=== PATIENT | female | born 1990 | race Caucasian/White ===

== ENCOUNTER → 2019-05-03 20:00 | Observation (INO) ==
[2019-05-03 17:23] LABS: Amphetamine Screen,Urine Negative ng/mL (Cutoff=1000); Barbiturate Screen,Urine Negative ng/mL (Cutoff=200); Benzodiazepines Screen,Urine Negative ng/mL (Cutoff=200); Cannabinoid Screen,Urine Negative ng/mL (Cutoff = 50); Cocaine Screen,Urine Negative ng/mL (Cutoff= 300); Opiate Screen,Urine Negative ng/mL (Cutoff=300); Phencyclidine Screen,Urine Negative ng/mL (Cutoff=25)
--- NOTE | 2019-05-03 19:40 | OB/GYN Progress Note ---
Date of Encounter: 05/03/19 Time of Encounter: 19:35 - Assessment and Plan (1) 34 weeks gestation of Current Visit: Yes Status: Acute Likely dehydration due to admission of large amount of soda consumed IV fluid bolus PO Benadryl, metoclopramide, and tylenol x 1 Encouraged oral hydration Reactive NST Urine dip negative for protein; blood pressures low normal Discharge home with labor precautions Follow up in office with routine care and PRN POC per consult with Dr Castillo. (2) Headache Current Visit: Yes Status: Acute Qualifiers: Headache type: unspecified Headache chronicity pattern: acute headache Intractability: not intractable Qualified Code(s): R51 - Headache (3) NST (non-stress test) reactive Current Visit: Yes Status: Acute Subjective - Subjective Principal diagnosis: Headache x 4 days Interval history: Ms Carmona is a 28 year old at 33 weeks and 2 days that presents to triage with c/o headache x 4 days with no relief with tylenol. She rates it as a 9/10; she denies light and sound sensitivity. She states occasional blurry vision which clears quickly. She denies epigastric pain, contractions, cramping, vaginal discharge, and vaginal bleeding. She states positive movement. She states she drinks roughly 1.5 liters of water a day and "a lot of coke". She is seen by Dr May for her care and has had steroids earlier this month for contractions. Antepartum ROS: movement normal, no loss of fluid, no vaginal bleeding, no contractions Objective - Vital Signs Vital Signs: Intake and Output 05/03/19 05/03/19 05/03/19 07:59 15:59 23:59 Other: Weight 60.3 kg Patient Weight 05/03/19 23:59 Weight 60.3 kg - Exam FHR: auscultation normal, category 1 FHR comments: Baseline 135 moderate variability with >15 x 15 accels no decels no contractions Auscultation: bilateral: normal Abdomen: Present: normal appearance, soft, gravid Uterus: Present: normal. Absent: firm
[~2019-05-03 20:00] MED LIST: Acetaminophen 325 MG TABLET PO ONE; Ringers Solution, Lactated 1,000 ML IVC ONE; Ringers Solution, Lactated 1,000 ML ONE
== END | disposition home or self-care (01) ==
LOC: 1NENULAB
PROVIDERS: ADMIT Advanced Practice Midwife; ATTEND Advanced Practice Midwife

== ENCOUNTER → 2019-05-22 20:29 | Observation (INO) ==
[2019-05-22 19:52] LABS: Bilirubin,Urine Negative (Negative); Blood,Urine Negative (Negative); Clarity,Urine Clear (Clear); Color,Urine Yellow (Yellow); Glucose,Urine (UA) Normal (Normal); Ketones,Urine Negative (Negative); Leukocyte Esterase,Urine Small (Negative); Nitrite,Urine Negative (Negative); Protein,Urine Negative (Neg-Trace); Specific Gravity,Urine 1.009 (1.010-1.025); Urobilinogen,Urine Normal (Normal)
[2019-05-22 19:53] LABS: Bacteria,Urine Few per hpf (None-Few); Hyaline Casts,Urine None Seen per lpf (None-Few); RBC,Urine 0-3 per hpf (0-3); Squamous Epithelial Cell,Urine Many per lpf (None-Few)
[2019-05-22 20:00] LABS: Amphetamine Screen,Urine Negative ng/mL (Cutoff=1000); Barbiturate Screen,Urine Negative ng/mL (Cutoff=200); Benzodiazepines Screen,Urine Negative ng/mL (Cutoff=200); Cannabinoid Screen,Urine Negative ng/mL (Cutoff = 50); Cocaine Screen,Urine Negative ng/mL (Cutoff= 300); Opiate Screen,Urine Negative ng/mL (Cutoff=300); Phencyclidine Screen,Urine Negative ng/mL (Cutoff=25)
[2019-05-22 21:13] LABS: Candida DNA Not Detected (Not Detect); Gardnerella DNA DETECTED (Not Detect); Trichomonas DNA Not Detected (Not Detect)
== END | disposition home or self-care (01) ==
LOC: 1NENULAB
PROVIDERS: ADMIT Registered Nurse; ATTEND Registered Nurse

== ENCOUNTER → 2019-05-28 18:35 | Observation (INO) ==
[2019-05-28 17:25] LABS: Amphetamine Screen,Urine Negative ng/mL (Cutoff=1000); Barbiturate Screen,Urine Negative ng/mL (Cutoff=200); Benzodiazepines Screen,Urine Negative ng/mL (Cutoff=200); Bilirubin,Urine Negative (Negative); Blood,Urine Negative (Negative); Cannabinoid Screen,Urine Negative ng/mL (Cutoff = 50); Clarity,Urine Cloudy (Clear); Cocaine Screen,Urine Negative ng/mL (Cutoff= 300); Color,Urine Yellow (Yellow); Glucose,Urine (UA) Normal (Normal); Ketones,Urine Negative (Negative); Leukocyte Esterase,Urine Large (Negative); Nitrite,Urine Negative (Negative); Opiate Screen,Urine Negative ng/mL (Cutoff=300); Phencyclidine Screen,Urine Negative ng/mL (Cutoff=25); Protein,Urine Trace mg/dL (Neg-Trace); Urobilinogen,Urine Normal (Normal)
[2019-05-28 17:28] LABS: Hyaline Casts,Urine None Seen per lpf (None-Few); RBC,Urine 0-3 per hpf (0-3); Squamous Epithelial Cell,Urine Many per lpf (None-Few); WBC,Urine 50-100 per hpf (0-3)
[2019-05-28 17:54] LABS: Amorphous Sediment,Urine Moderate (Few)
[2019-05-28 17:55] LABS: Bacteria,Urine Many per hpf (None-Few)
== END | disposition home or self-care (01) ==
LOC: 1NENULAB
PROVIDERS: ADMIT Advanced Practice Midwife; ATTEND Advanced Practice Midwife

== ENCOUNTER 2019-06-13 19:30 | Inpatient (IN) ==
[~2019-06-13 19:30] MED LIST changes: +*HR* Nalbuphine 10 MG/ML AMPUL IVP PRN; -Acetaminophen 325 MG TABLET PO ONE; +Famotidine 20 MG/2 ML VIAL IVP PRN; +Lidocaine 1% 20 ML MDV INFILT PRN; +Metoclopramide 10 MG/2 ML VIAL IVP PRN; +Naloxone 0.4 MG/ML INJ IVP PRN; +Ondansetron 4 MG/2 ML VIAL IVP PRN; +Oxytocin 20 units/ LR 1000 mL 20 UNIT/1,000 ML BAG IVC SCH; -Ringers Solution, Lactated 1,000 ML IVC ONE; +Ringers Solution, Lactated 1,000 ML IVC SCH; -Ringers Solution, Lactated 1,000 ML ONE
[2019-06-13] MEDS ORDERED: Ringers Solution, Lactated 1,000 ML ONE (19:33)
[2019-06-13] MEDS ORDERED: Epidural Premix (fent/bupiv) 110 ML EP ONE (19:59)
[2019-06-13] MEDS ORDERED: Epidural Premix (fent/bupiv) 110 ML EP SCH (20:00)
[2019-06-13 20:18] LABS: Basophils % 0.3 %; Eosinophils # 0.1 K/mcL (0.0-0.6); Hematocrit 38.7 % (35.3-44.9); Hemoglobin 12.6 g/dL (11.5-15.4); Immature Granulocytes % 0.3 % (0-4); Lymphocytes # 1.9 K/mcL (0.6-4.6); Lymphocytes % 14.5 %; Mean Corpuscular HGB Conc 32.6 g/dL (31.6-35.5); Mean Corpuscular Hemoglobin 24.8 pg (28.0-33.3); Mean Platelet Volume 11.4 fL (9.4-12.4); Monocytes # 0.7 K/mcL (0.0-1.3); Monocytes % 5.2 %; Neutrophils # 10.5 K/mcL (1.6-8.9); Platelet Count 193 K/mcL (140-400); Red Blood Count 5.09 M/mcL (3.82-4.97); Red Cell Distribution Width 13.8 % (11.5-14.5); Segmented Neutrophils % 78.7 %; White Blood Count 13.4 K/mcL (4.3-11.1)
[2019-06-13 20:25] LABS: Amphetamine Screen,Urine Negative ng/mL (Cutoff=1000); Barbiturate Screen,Urine Negative ng/mL (Cutoff=200); Benzodiazepines Screen,Urine Negative ng/mL (Cutoff=200); Cannabinoid Screen,Urine Negative ng/mL (Cutoff = 50); Cocaine Screen,Urine Negative ng/mL (Cutoff= 300); Opiate Screen,Urine Negative ng/mL (Cutoff=300); Phencyclidine Screen,Urine Negative ng/mL (Cutoff=25)
[2019-06-13] MEDS ORDERED: *HR* Ropivacaine/PF 0.5% 20 ML VIAL ONE (21:12)
[2019-06-14] MEDS ORDERED: Oxytocin 20 units/ LR 1000 mL 20 UNIT/1,000 ML BAG IVC ONE (02:03)
[2019-06-14] MEDS ORDERED: Acetaminophen 325 MG TABLET PO PRN (02:03)
[2019-06-14] MEDS ORDERED: Benzocaine/Menthol 56 GM AEROSOL SPRAY TP PRN (02:03)
[2019-06-14] MEDS ORDERED: Measles/Mumps/Rubella Vacc 0.5 ML VIAL SQ PRN (02:03)
[2019-06-14] MEDS ORDERED: Rho Immune Globulin 1,500 UNIT SYRINGE IM PRN (02:03)
[2019-06-14] MEDS ORDERED: Oxytocin 20 units/ LR 1000 mL 20 UNIT/1,000 ML BAG IVC SCH (02:03)
[2019-06-14 06:34] LABS: Basophils % 0.1 %; Eosinophils % 0.1 %; Hematocrit 31.5 % (35.3-44.9); Immature Granulocytes % 0.6 % (0-4); Lymphocytes # 1.7 K/mcL (0.6-4.6); Lymphocytes % 11.4 %; Mean Corpuscular Hemoglobin 24.7 pg (28.0-33.3); Mean Corpuscular Volume 74.8 fL (83.0-100.0); Mean Platelet Volume 11.6 fL (9.4-12.4); Monocytes # 0.8 K/mcL (0.0-1.3); Monocytes % 5.5 %; Neutrophils # 11.9 K/mcL (1.6-8.9); Platelet Count 172 K/mcL (140-400); Red Blood Count 4.21 M/mcL (3.82-4.97); Red Cell Distribution Width 13.8 % (11.5-14.5); Segmented Neutrophils % 82.3 %; White Blood Count 14.5 K/mcL (4.3-11.1)
[2019-06-14 06:48] LABS: Hemoglobin 10.4 g/dL (11.5-15.4)
[2019-06-14] MEDS: Prenatal Vit/FA 1 EACH TABLET PO SCH (08:40)
[2019-06-14 20:46] VITALS: BP 102/72
[2019-06-15] MEDS: Prenatal Vit/FA 1 EACH TABLET PO SCH (08:24)
== END 2019-06-15 12:20 | disposition home or self-care (01) | DRG 806 ==
LOC: 1NENULAB → 1NENUOBS 06-14 01:42
PROVIDERS: ADMIT Registered Nurse; ATTEND Registered Nurse